=== PATIENT | male | born 1990 ===

== ENCOUNTER 2018-04-08 15:45 | Outpatient (CLI) | payer OTHER ==
[~2018-04-08] VITALS: Ht 177.8 cm; Wt 68.0 kg
== END 2018-04-08 16:00 | disposition home or self-care (01) ==
LOC: OFIC 805 15:45
DX: H61.22 Impacted cerumen, left ear (principal); H90.42 Sensorineural hearing loss, unilateral, left ear, with unrestricted hearing on the contralateral side

== ENCOUNTER 2019-12-04 02:17 | Emergency (ER) | payer OTHER ==
[~2019-12-04] VITALS: Ht 175.3 cm; Wt 68.9 kg
[2019-12-04] MEDS ORDERED: DUI500 PO (03:50)
[2019-12-04] MEDS ORDERED: KETO10TA2 PO (03:50)
== END 2019-12-04 03:55 | disposition home or self-care (01) ==
LOC: ER 02:17
DX: S91.322A Laceration with foreign body, left foot, initial encounter (principal); W26.8XXA Contact with other sharp object(s), not elsewhere classified, initial encounter; Y93.01 Activity, walking, marching and hiking; Y92.018 Other place in single-family (private) house as the place of occurrence of the external cause; Y99.8 Other external cause status